=== PATIENT | female | born 1970 | race African-American/Black ===

== ENCOUNTER 2017-12-09 05:46 | Inpatient (IN) ==
[2017-12-03 13:41] LABS: Basophils # 0.1 10*3/uL (0.0-0.2); Basophils % 0.8 % (0.0-0.8); Eosinophils # 0.3 10*3/uL (0.0-0.87); Eosinophils % 2.9 % (0.00-10.9); Hematocrit 34.2 VOL% (35.7-47.0); Immature Granulocytes % 0.3 %; Immature Granulocytes Absolute 0.03 #; Lymphocytes # 3.2 10*3/uL (1.4-4.0); Mean Corpuscular HGB Conc 32.2 GM/DL (32-36); Mean Corpuscular Hemoglobin 26 PG (27-34); Mean Corpuscular Volume 79.7 FL (87-102); Mean Platelet Volume 10.4 FL (9.6-12.0); Monocytes # 0.7 10*3/uL (0.11-0.8); Neutrophils # 4.8 10*3/uL (1.4-7.4); Platelet Count 250 T/CUMM (130-400); Red Blood Count 4.29 MC/CUMM (3.8-5.5); Red Cell Distribution Width 17.1 % (9.3-17.3); White Blood Count 9.1 T/CUMM (4-12)
[2017-12-03 13:58] LABS: Albumin 3.2 G/DL (3.4-5.0); Bilirubin,Total 0.7 MG/DL (0.2-1.0); Calcium 8.6 MG/DL (8.5-10.1); Osmolality,Calculated 279.4 MOS/KG (273-304); Potassium 3.3 MMOL/L (3.5-5.1); Total Protein 7.8 G/DL (6.4-8.3)
[2017-12-03 14:01] LABS: PT Patient Result 10.1 SECS; Partial Thromboplastin Time 23.9 SECS (0-40)
[2017-12-03 14:09] LABS: Apearance,Urine Slightly Hazy (Clear); Bilirubin,Urine Negative (Negative); Blood, Urine Negative (Negative); Glucose,Urine (UA) Negative (Negative); Ketones,Urine Negative (Negative); Mucus,Urine Moderate /LPF (Occasional); Nitrite,Urine Negative (Negative); Protein,Urine Negative; RBC,Urine 1 /HPF (0-4); Squamous Epithelial Cell,Urine Occasional /HPF (0-10); Urine Color Yellow (Yellow); Urine Specific Gravity 1.023 (1.001-1.035); Urine Urobilinogen < 2.0 EU/DL (0.2-1.0); WBC,Urine <1 /HPF (0-6)
[2017-12-03 16:09] LABS: Anisocytosis 1+; Band Neutrophils 2 % (0-10); Eosinophils 3 % (0-10); Lymphocytes 30 % (20-55); Platelet Estimate Normal; Segmented Neutrophils 56 % (50-85); Total Cells Counted 100
[2017-12-03 16:10] LABS: Atypical Lymphocytes Few; Giant Platelets Few; Hypochromasia Slight; Microcytosis 1+
[2017-12-09] MEDS ORDERED: VANCOMYCIN INJ 1,000 MG in SODIUM CHLORIDE 0.9% 250 ML IV ONE ×2 (06:30→19:00)
[2017-12-09] MEDS ORDERED: ceFAZolin 1,000 MG in SYRINGE 1 EACH IV ONE (06:30)
[2017-12-09] MEDS ORDERED: BACITRACIN OINT 0.9 GM PACK TOP ONE (06:52)
[2017-12-09] MEDS ORDERED: SCOPOLAMINE 1.5 MG PATCH TRANSDERM ONE ×2 (06:59→07:09)
[2017-12-09] MEDS ORDERED: DIAZEPAM 5 MG TABLET PO ONE (06:59)
[2017-12-09] MEDS ORDERED: FAMOTIDINE 20 MG TABLET PO ONE (06:59)
[2017-12-09] MEDS ORDERED: LACTATED RINGERS 1,000 ML IV SCH ×2 (07:00→11:00)
[2017-12-09] MEDS ORDERED: VANCOMYCIN 1,000 MG VIAL ONE (07:09)
[2017-12-09] MEDS ORDERED: FAMOTIDINE 20 MG TABLET ONE (07:09)
[2017-12-09] MEDS ORDERED: DIAZEPAM 5 MG TABLET ONE (07:09)
[2017-12-09] MEDS ORDERED: ceFAZolin 1,000 MG VIAL ONE (07:09)
[2017-12-09] MEDS ORDERED: TRANEXAMIC ACID 1,000 MG/10 ML VIAL ONE (07:57)
[2017-12-09] MEDS ORDERED: BUPIVACAINE SPINAL 0.75% 2 ML AMP SPINAL ONE (07:57)
[2017-12-09] MEDS ORDERED: diphenhydrAMINE CAP 25 MG CAPSULE PO PRN (10:26)
[2017-12-09] MEDS ORDERED: MORPHINE 4 MG/1 ML VIAL IV PRN ×2 (10:26)
[2017-12-09] MEDS ORDERED: MAGNESIUM HYDROXIDE SUSP 30 ML UDCUP PO PRN (10:26)
[2017-12-09] MEDS ORDERED: ONDANSETRON 4 MG/2 ML VIAL IV PRN ×2 (10:26→10:59)
[2017-12-09] MEDS ORDERED: ZALEPLON 5 MG CAPSULE PO PRN (10:26)
[2017-12-09] MEDS ORDERED: oxyCODONE IR 5 MG TABLET PO PRN ×2 (10:26)
[2017-12-09] MEDS ORDERED: ROPIVACAINE 0.5% 30 ML VIAL ONE (10:31)
[2017-12-09] MEDS ORDERED: MORPHINE 10 MG/1 ML VIAL IV PRN (10:59)
[2017-12-09] MEDS ORDERED: SODIUM CHLORIDE 0.9% 200 ML IV ONE (11:01)
[2017-12-09] MEDS ORDERED: fentaNYL 100 MCG/2 ML VIAL ONE (11:01)
[2017-12-09] MEDS ORDERED: LACTATED RINGERS 1,000 ML IV ONE (11:01)
[2017-12-09] MEDS ORDERED: PROPOFOL 1,000 MG/100 ML BOTTLE IV ONE (11:01)
[2017-12-09] MEDS ORDERED: MIDAZOLAM 2 MG/2 ML VIAL ONE (11:01)
[2017-12-09] MEDS ORDERED: PHENYLEPHRINE 10 MG/1 ML VIAL IV ONE (11:01)
[2017-12-09] MEDS ORDERED: tiZANidine 4 MG TABLET PO PRN (12:08)
[2017-12-09] MEDS: KETOROLAC 30 MG/1 ML VIAL IV SCH ×3 (15:57→23:09)
[2017-12-09] MEDS: GABAPENTIN 300 MG CAPSULE PO SCH ×2 (16:09→20:28)
[2017-12-09] MEDS: ACETAMINOPHEN 500 MG TABLET PO SCH ×2 (16:09→20:27)
[2017-12-09] MEDS: ceFAZolin 2,000 MG in PREMIX 1 EACH IV SCH ×2 (16:15→23:09)
[2017-12-09] MEDS: DOCUSATE SODIUM 100 MG CAPSULE PO SCH (20:27)
[2017-12-09] MEDS: MAGNESIUM OXIDE 400 MG TABLET PO SCH (20:27)
[2017-12-09] MEDS: LACTATED RINGERS 1,000 ML IV SCH ×2 (23:21→23:36)
[2017-12-10] MEDS: ACETAMINOPHEN 500 MG TABLET PO SCH ×2 (02:42→09:27)
[2017-12-10 05:25] LABS: Basophils % 0.1 % (0.0-0.8); Immature Granulocytes % 0.4 %; Immature Granulocytes Absolute 0.05 #; Lymphocytes % 8.6 % (21.3-54.2); Mean Corpuscular HGB Conc 33.3 GM/DL (32-36); Mean Corpuscular Hemoglobin 26 PG (27-34); Mean Corpuscular Volume 78.9 FL (87-102); Mean Platelet Volume 11.3 FL (9.6-12.0); Monocytes # 1.5 10*3/uL (0.11-0.8); Monocytes % 12.4 % (1.7-12.7); Neutrophils # 9.3 10*3/uL (1.4-7.4); Neutrophils % 78.5 % (38.7-73.9); Platelet Count 236 T/CUMM (130-400); Red Cell Distribution Width 16.6 % (9.3-17.3); White Blood Count 11.8 T/CUMM (4-12)
[2017-12-10] MEDS: KETOROLAC 30 MG/1 ML VIAL IV SCH (05:25)
[2017-12-10] MEDS: FONDAPARINUX 2.5 MG/0.5 ML SYRINGE SUBCUT SCH (05:26)
[2017-12-10 05:49] LABS: Calcium 8.3 MG/DL (8.5-10.1); Osmolality,Calculated 277.5 MOS/KG (273-304); Potassium 3.5 MMOL/L (3.5-5.1)
[2017-12-10] MEDS: DOCUSATE SODIUM 100 MG CAPSULE PO SCH ×2 (09:27→20:38)
[2017-12-10] MEDS: MAGNESIUM OXIDE 400 MG TABLET PO SCH ×2 (09:27→20:38)
[2017-12-10] MEDS: FOLIC ACID 1 MG TABLET PO SCH (09:27)
[2017-12-10] MEDS: PANTOPRAZOLE 40 MG TABLET PO SCH (09:27)
[2017-12-10] MEDS: GABAPENTIN 300 MG CAPSULE PO SCH ×3 (09:27→20:38)
[2017-12-10] MEDS: PARoxetine 10 MG TABLET PO SCH (09:27)
[2017-12-10] MEDS: ESTROPIPATE 0.75 MG TABLET PO SCH (09:29)
[2017-12-10] MEDS: CELECOXIB 200 MG CAPSULE PO SCH (16:21)
[2017-12-10] MEDS: LACTATED RINGERS 1,000 ML IV SCH (21:31)
[2017-12-11] MEDS: FONDAPARINUX 2.5 MG/0.5 ML SYRINGE SUBCUT SCH (05:09)
[2017-12-11 06:53] LABS: Basophils % 0.1 % (0.0-0.8); Eosinophils # 0.4 10*3/uL (0.0-0.87); Eosinophils % 4.8 % (0.00-10.9); Hematocrit 28.5 VOL% (35.7-47.0); Hemoglobin 9.1 GM/DL (12.0-16.0); Immature Granulocytes % 0.5 %; Immature Granulocytes Absolute 0.05 #; Lymphocytes # 1.5 10*3/uL (1.4-4.0); Lymphocytes % 16.3 % (21.3-54.2); Mean Corpuscular HGB Conc 31.9 GM/DL (32-36); Mean Corpuscular Hemoglobin 26 PG (27-34); Monocytes # 1.3 10*3/uL (0.11-0.8); Monocytes % 13.7 % (1.7-12.7); Neutrophils % 64.6 % (38.7-73.9); Platelet Count 232 T/CUMM (130-400); Red Blood Count 3.52 MC/CUMM (3.8-5.5); Red Cell Distribution Width 16.8 % (9.3-17.3); White Blood Count 9.3 T/CUMM (4-12)
[2017-12-11] MEDS: PARoxetine 10 MG TABLET PO SCH (08:27)
[2017-12-11] MEDS: DOCUSATE SODIUM 100 MG CAPSULE PO SCH (08:27)
[2017-12-11] MEDS: GABAPENTIN 300 MG CAPSULE PO SCH (08:27)
[2017-12-11] MEDS: PANTOPRAZOLE 40 MG TABLET PO SCH (08:27)
[2017-12-11] MEDS: FOLIC ACID 1 MG TABLET PO SCH (08:27)
[2017-12-11] MEDS: MAGNESIUM OXIDE 400 MG TABLET PO SCH (08:27)
[2017-12-11] MEDS: CELECOXIB 200 MG CAPSULE PO SCH (08:27)
[2017-12-11] MEDS: ESTROPIPATE 0.75 MG TABLET PO SCH (08:27)
[2017-12-11 11:13] VITALS: BP 113/65
[2017-12-19] MEDS ORDERED: CYANOCOBALAMIN 1000 MCG/1 ML VIAL IM SCH (09:00)
== END 2017-12-11 15:15 | disposition home health service (06) | DRG 470 ==
LOC: N.OR 05:46 → N.SDSINP 05:47 → N.3E 14:28
PROVIDERS: ADMIT Orthopaedic Surgery; ATTEND Orthopaedic Surgery